=== PATIENT | female | born 1980 | race Caucasian/White ===

== ENCOUNTER 2022-03-07 05:26 | Emergency (ER) | payer OTHER ==
[~2022-03-07] VITALS: Ht 182.9 cm; Wt 69.0 kg
[2022-03-07 05:35] VITALS: BP 132/83
[2022-03-07 08:30] LABS: CLARITY URINE CLEAR (CLEAR); COLOR URINE YELLOW (YELLOW); KETONES URINE TRACE (NEGATIVE); LEUKOCYTE ESTERASE URINE NEGATIVE (NEGATIVE); NITRITE URINE NEGATIVE (NEGATIVE); OCCULT BLOOD URINE NEGATIVE (NEGATIVE); PH URINE 6.5 (4.5-8.0); PROTEIN URINE TRACE (NEGATIVE); SPECIFIC GRAVITY URINE 1.026 (1.005-1.030)
[2022-03-07] MEDS ORDERED: IBUPROFEN 400MG TABLET PO NR (09:15)
[2022-03-07] MEDS ORDERED: ACETAMINOPHEN 325MG TABLET PO NR (09:15)
[2022-03-07] MEDS ORDERED: IBUP-2028 MT (11:43)
== END 2022-03-07 11:53 | disposition home or self-care (01) ==
LOC: ER 05:26
DX: R10.30 Lower abdominal pain, unspecified (principal)
CPT/HCPCS: 76830; 76856; 81003; 81025; 99284